=== PATIENT | male | born 1990 | race Caucasian/White ===

== ENCOUNTER 2023-12-06 08:55 | Emergency (ER) | payer MEDICAID, OTHER ==
[~2023-12-06] VITALS: Ht 172.7 cm; Wt 89.8 kg
[2023-12-06 09:01] VITALS: BP 179/126; PULSE 85; RESP 18; TEMP 98; O2SAT 98
[2023-12-06] MEDS ORDERED: VALA1TAB40 PO (09:32)
[2023-12-06] MEDS ORDERED: TRAM-748 PO (09:32)
[2023-12-06 09:47] VITALS: BP 154/87; PULSE 80; RESP 16; TEMP 98; O2SAT 97
== END 2023-12-06 09:40 | disposition home or self-care (01) ==
LOC: MED 08:55
DX: B02.9 Zoster without complications (principal); I10 Essential (primary) hypertension; M25.551 Pain in right hip; F17.200 Nicotine dependence, unspecified, uncomplicated; Z79.899 Other long term (current) drug therapy; Z88.1 Allergy status to other antibiotic agents
CPT/HCPCS: 99283